=== PATIENT | female | born 1955 | race Asian ===

== ENCOUNTER 2023-09-10 06:36 | Day surgery (SDC) | payer MEDICARE, OTHER ==
[~2023-09-10] VITALS: Ht 160 cm; Wt 65.8 kg
[2023-09-10] MEDS ORDERED: fentaNYL citrate 0.05 MG/ML VIAL ONE (07:34)
[2023-09-10] MEDS: LIDOCAINE 2% 1000 MG/50 ML VIAL INJ ONE (07:52)
[2023-09-10] MEDS: fentaNYL citrate 0.05 MG/ML VIAL IVP ONE (07:55)
[2023-09-10] MEDS ORDERED: ACET-10509 PO (09:35)
[2023-09-10] MEDS: MORPHINE SULFATE 2 MG/ML SYR ONE (09:55)
[2023-09-10] MEDS: MORPHINE SULFATE 2 MG/ML SYR IVP PRN (10:40)
== END 2023-09-10 11:30 | disposition home or self-care (01) ==
LOC: MOR 06:36 → MMU 06:37 → MOR 11:30
PROVIDERS: ATTEND Internal Medicine Gastroenterology
DX: R74.01 Elevation of levels of liver transaminase levels (principal); R94.5 Abnormal results of liver function studies; R14.0 Abdominal distension (gaseous); I10 Essential (primary) hypertension; E78.5 Hyperlipidemia, unspecified; M19.90 Unspecified osteoarthritis, unspecified site; Z79.899 Other long term (current) drug therapy; Z98.890 Other specified postprocedural states; Z80.0 Family history of malignant neoplasm of digestive organs
CPT/HCPCS: 47000; 76942; 82948; J2001; J2270; J3010; Q0092